=== PATIENT | male | born 1985 | race American Indian/Alaskan Native ===

== ENCOUNTER 2016-10-22 17:37 | Emergency (ER) | payer SELFPAY ==
[2016-10-22 18:06] VITALS: BP 129/85
--- NOTE | 2016-10-22 19:34 | Emergency Department Report ---
- General Chief Complaint: Upper Respiratory Infection Stated Complaint: HEADACHE/BODY PAIN/WEAKNESS Time Seen by Provider: 10/22/16 19:32 Source: patient Mode of arrival: Ambulatory Limitations: No Limitations - History of Present Illness MD Complaint: fever, cough, nasal congestion -: Sudden (today) Severity scale (0 -10): 3 Associated Symptoms: fever, chills, headache, cough - Related Data Previous Rx's Medication Instructions Recorded Last Taken Type ALBUTEROL Inhaler [ProAir HFA 2 puff IH QID PRN #1 inhalation 10/22/16 Unknown Rx Inhaler] Acetamin/Codeine 120-12Mg/5 ml 5 ml PO TID PRN #120 oz 10/22/16 Unknown Rx [Tylenol/Codeine] Oseltamivir [Tamiflu] 75 mg PO BID #10 cap 10/22/16 Unknown Rx Promethazine [Phenergan TAB] 25 mg PO Q6HR PRN #25 tab 10/22/16 Unknown Rx Allergies Allergy/AdvReac Type Severity Reaction Status Date / Time No Known Allergies Allergy Verified 10/22/16 18:08 ED Review of Systems ROS: Stated complaint: HEADACHE/BODY PAIN/WEAKNESS Other details as noted in HPI Constitutional: denies: chills, fever Eyes: denies: eye pain, eye discharge, vision change ENT: congestion Respiratory: cough. denies: shortness of breath, SOB with exertion, SOB at rest , stridor, wheezing Cardiovascular: as per HPI. denies: chest pain, palpitations Gastrointestinal: denies: abdominal pain, nausea, vomiting Musculoskeletal: myalgia Skin: denies: rash, lesions Neurological: headache ED Past Medical Hx - Past Medical History Previous Medical History?: Yes Hx Asthma: Yes - Surgical History Past Surgical History?: No - Social History Smoking Status: Current Every Day Smoker Substance Use Type: Alcohol - Medications Home Medications: Home Medications Medication Instructions Recorded Confirmed Last Taken Type ALBUTEROL Inhaler [ProAir HFA 2 puff IH QID PRN #1 inhalation 10/22/16 Unknown Rx Inhaler] Acetamin/Codeine 120-12Mg/5 ml 5 ml PO TID PRN #120 oz 10/22/16 Unknown Rx [Tylenol/Codeine] Oseltamivir [Tamiflu] 75 mg PO BID #10 cap 10/22/16 Unknown Rx Promethazine [Phenergan TAB] 25 mg PO Q6HR PRN #25 tab 10/22/16 Unknown Rx ED Physical Exam - General Limitations: No Limitations General appearance: alert, in no apparent distress - Head Head exam: Present: atraumatic, normocephalic - Eye Eye exam: Present: normal appearance - ENT ENT exam: Present: mucous membranes moist - Neck Neck exam: Present: normal inspection - Respiratory Respiratory exam: Present: normal lung sounds bilaterally. Absent: respiratory distress, wheezes, rales, accessory muscle use, decreased breath sounds, prolonged expiratory - Cardiovascular Cardiovascular Exam: Present: regular rate ED Course Vital Signs 10/22/16 18:03 Temperature 99.4 F Pulse Rate 84 Respiratory 16 Rate Blood Pressure 129/85 O2 Sat by Pulse 100 Oximetry Critical care attestation.: If time is entered above; I have spent that time in minutes in the direct care of this critically ill patient, excluding procedure time. ED Disposition Clinical Impression: Influenza Disposition: DISCHARGED TO HOME OR SELFCARE Is pt being admited?: No Does the pt Need Aspirin: No Condition: Stable Instructions: Influenza (ED) Prescriptions: Acetamin/Codeine 120-12Mg/5 ml [Tylenol/Codeine] 5 ml PO TID PRN #120 oz PRN Reason: Pain ALBUTEROL Inhaler [ProAir HFA Inhaler] 2 puff IH QID PRN #1 inhalation PRN Reason: Shortness Of Breath Oseltamivir [Tamiflu] 75 mg PO BID #10 cap Promethazine [Phenergan TAB] 25 mg PO Q6HR PRN #25 tab PRN Reason: Nausea Referrals: PRIMARY CARE, [Primary Care Provider] - 3-5 Days Forms: Work/School Release Form(ED)
== END 2016-10-22 19:52 | disposition home or self-care (01) ==
LOC: ED 17:37
DX: J11.1 Influenza due to unidentified influenza virus with other respiratory manifestations (principal); J45.909 Unspecified asthma, uncomplicated; F17.200 Nicotine dependence, unspecified, uncomplicated
CPT/HCPCS: 99281

== ENCOUNTER 2016-12-19 11:06 | Emergency (ER) | payer SELFPAY ==
[2016-12-19 11:45] VITALS: BP 119/80
--- NOTE | 2016-12-19 11:58 | Emergency Department Report ---
Chief Complaint: Dental/Oral Stated Complaint: TOOTHACHE Time Seen by Provider: 12/19/16 11:54 - HPI History of Present Illness: 31 y/o male that has toothache that started yesterday. He reports that he took amox and tordol that he had left from the last toothache. Denies any fever. no nausea or vomiting. Has not noticed any swelling or drainage. Pain is throbbing located in the back at the bottom and top left side. He reports that the pain come sharp at time. Pain is intermittent but will stay for a while. - Exam Vital Signs: Vital Signs 12/19/16 11:42 Temperature 98.2 F Pulse Rate 64 Respiratory 16 Rate Blood Pressure 119/80 O2 Sat by Pulse 100 Oximetry Physical Exam: AxO NAD. able to speech in completes sentences. No carries or abscess noticed no gingival swelling. MSE screening note: Focused history and physical exam performed. Due to findings the following was ordered: ED Disposition for MSE Clinical Impression: Toothache Disposition: MEDICAL SCREENING EXAM-LEFT Is pt being admited?: No Does the pt Need Aspirin: No
== END 2016-12-19 12:00 | disposition left against medical advice (07) ==
LOC: ED 11:06
DX: K08.89 Other specified disorders of teeth and supporting structures (principal); Z53.21 Procedure and treatment not carried out due to patient leaving prior to being seen by health care provider

== ENCOUNTER 2021-11-26 10:20 | Emergency (ER) | payer SELFPAY ==
[2021-11-26 12:12] VITALS: BP 134/76
== END 2021-11-26 13:45 | disposition left against medical advice (07) ==
LOC: ED 10:20
DX: J45.909 Unspecified asthma, uncomplicated (principal); Z53.21 Procedure and treatment not carried out due to patient leaving prior to being seen by health care provider